=== PATIENT | male | born 2000 | race Caucasian/White ===

== ENCOUNTER 2024-02-18 03:51 | Emergency (ER) | payer SELFPAY ==
[~2024-02-18] VITALS: Ht 175.3 cm; Wt 74.0 kg
[2024-02-18 04:02] VITALS: O2SAT 99
[2024-02-18 06:11] LABS: BASOPHILS % 0.4 % (0.0-2.0); EOSINOPHILS % 4.8 % (0.0-5.0); HEMATOCRIT. 41.4 % (42.0-52.0); HEMOGLOBIN. 14.2 g/dL (14.0-18.0); LYMPHOCYTES % 25.3 % (20.0-50.0); MEAN CORPUSCULAR HEMOGLOBIN 32.1 pg (28.0-32.0); MEAN CORPUSCULAR HGB CONC 34.2 g/dL (31.0-37.0); MEAN CORPUSCULAR VOLUME 93.9 fL (80.0-94.0); MEAN PLATELET VOLUME 8.4 fl (7.4-10.4); MONOCYTES % 9.9 % (2.0-8.0); NEUTROPHILS % 59.6 % (40.0-76.0); PLATELET 323 x1000/uL (130-400); RED BLOOD CELL COUNT 4.41 mill/uL (4.7-6.1); RED CELL DISTRIBUTION WIDTH 12.4 % (11.6-14.6); WHITE BLOOD COUNT 9.4 x1000/uL (4.5-11.0)
[2024-02-18 06:22] LABS: CHLORIDE 102 mEq/L (98-107); POTASSIUM 3.8 mEq/L (3.5-5.1); SODIUM 137 mEq/L (136-145)
[2024-02-18 06:23] LABS: CARBON DIOXIDE 31 mEq/L (21-32)
[2024-02-18 06:24] LABS: CALCIUM 10.2 mg/dL (8.7-10.4)
[2024-02-18 06:28] LABS: CREATININE 0.8 mg/dL (0.6-1.3); GLUCOSE 87 mg/dL (70-105)
[2024-02-18 06:29] LABS: UREA NITROGEN BLOOD 11 mg/dL (9-23)
[2024-02-18 06:47] LABS: ETHANOL BLOOD < 10 mg/dL (<10)
[2024-02-18 09:52] VITALS: BP 131/78; PULSE 79; RESP 16; TEMP 98.5
== END 2024-02-18 11:23 | disposition home or self-care (01) ==
LOC: ER 03:51
DX: F99 Mental disorder, not otherwise specified (principal); F31.9 Bipolar disorder, unspecified
CPT/HCPCS: 36415; 80048; 80320; 85025; 99283; G0480